=== PATIENT | female | born 1995 | race Caucasian/White ===

== ENCOUNTER 2023-08-16 16:59 | Inpatient (IN) | payer BC, SELFPAY ==
[2023-08-16] VITALS (71 sets, daily range): BP systolic 89–161; BP diastolic 42–72; PULSE 84–137; RESP 16–17; TEMP 36.8–37.6; O2SAT 81–100; BMI 26.6
[2023-08-16] MEDS: lactated ringers 1,000 ML 999 ML IV ×4 (16:20→19:32)
[2023-08-16] MEDS: ondansetron 2 mg/ML SDV 2 mL 4 MG IVP (16:30)
[2023-08-16 17:21] LABS: Basophils % 0.2 %; Eosinophils % 0.2 %; Lymphocytes # 1.2 10^3/uL (0.8-4.8); Lymphocytes % 8.9 %; Mean Corpuscular HGB Conc 32.1 g/dL (30-55); Mean Corpuscular Hemoglobin 25.8 pg (27-33); Mean Corpuscular Volume 80.6 fl (85-98); Mean Platelet Volume 12.6 fL (7.4-10.4); Monocytes # 0.6 10^3/uL (0.2-0.9); Monocytes % 4.6 %; Neutrophils # 11.34 10^3/uL (1.8-7.7); Neutrophils % 85.7 %; Nucleated Red Blood Cells % 0 %; Platelet Count 215 10^3/cmm (157-399); Red Blood Count 4.22 10^6/uL (3.85-5.65); Red Cell Distribution Width 14.3 % (12.1-15.1); White Blood Count 13.22 10^3/uL (3.29-11.43)
[2023-08-16] MEDS: ROPivacaine syringe 100 MG/50 ML SYRINGE 10 MG EPIDURAL (18:04)
--- NOTE | 2023-08-16 18:30 | ANES.PAUD2 ---
Pre-Anesthetic Update Pre-Anesthetic Assessment: Date of Surgery/Procedure: 08/16/23 Proposed Procedure: Labor Epidural Any changes to Pre-Anesthetic Assessment?: No Last Intake: clears- current meal- 1200 Labs Last 48hrs: Short CBC 08/16/23 Range/Units 16:12 WBC 13.22 H (3.29-11.43) 10^ 3/uL Hgb 10.90 L (11.27-16.99) g/ dL Hct 34.0 L (36-47) % MCV 80.6 L (85-98) fl Plt Count 215 (157-399) 10^3/c mm Neut % (Auto) 85.7 % Neut # (Auto) 11.34 H (1.8-7.7) 10^3/u L Blood Bank 08/16/23 16:12 Blood Type A Positive Rho(D) Type Rh positive Antibody Screen Negative Vitals: Temperature 99.7 F H 08/16/23 16:22 Pulse Rate 122 H 08/16/23 18:25 Pulse Rhythm Regular 08/16/23 15:37 Pulse Strength 3+ Normal 08/16/23 15:37 Respiratory Effort Spontaneous, Non- Labored 08/16/23 15:37 Respiratory Depth Normal 08/16/23 15:37 Respiratory Patter n Normal 08/16/23 15:37 Blood Pressure 107/51 08/16/23 18:25 Pulse Oximetry 100 08/16/23 18:24 Oxygen Delivery Me thod Room Air 08/16/23 15:37 Cardiac Studies: No Data to Display Anesthesia Procedures Epidural: Time Out Performed: Yes Consents Signed: Procedure Consent Consent: requested by attending/covering physician, from patient, risks and benefits reviewed and patient agrees to proceed Lumbar Level: L3-L4 Epidural position: sitting Epidural procedure: sterile prep of area, 1% lidocaine to numb the area, negative for paresthesia passed, test dose given, 1.5% xylocaine 1:200k epi (6ml), placed PCEA, no systemic response, sterile dressing applied, L.U.D. no apparent complications and 0.2% Ropiavacaine @ mls/hr (10ml/hr) Additional Comments: ERASMO at 5 cm on first attempt catheter threaded to 9cm, test dose given with no response, remaining lidocaine and saline given from kit.
--- NOTE | 2023-08-16 20:27 | P.HP_ITS ---
Providers/Chief Complaint 2 Admitting Physician: Berlin Jenkins MD Primary Care Provider: Berlin Jenkins MD Chief Complaint: Poss SROM HPI [employer] History of Present Illness Irma Moody is a 27 year old 1 female at 37 weeks and 6 days estimated gestational age who presented to the hospital with spontaneous rupture of membranes. She began having contractions spontaneously. Initially she did have a fever up to 102.7 but resolved spontaneously without intervention. An epidural was placed. heart tones demonstrated tachycardia but then resolved then to having late and variable decelerations including to deep decelerations that required multiple position changes for resolution of the decelerations. As result, pain decision to proceed with section since she is only 6 cm dilated at this time. Present Details : 1 Para: 0 Labs Rubella: Immune RPR: Negative GBS: Negative Medications/Allergies Home Medications Medication Instructions Recorded Confirmed Last Taken Type rbgoyurs-kjc-Md-FA 1 mg 1 tab PO DAILY 08/16/23 08/16/23 08/16/23 08:00 History tablet hydrocodone 5 mg-acetaminophen 325 1 tab PO Q6H PRN Moderate To 08/18/23 Unknown Rx mg tablet Severe Pain #28 tabs ibuprofen 800 mg tablet 800 mg PO TID #45 tabs 08/18/23 Unknown Rx Allergies Allergy/AdvReac Type Severity Reaction Status Date / Time No Known Allergies Allergy Verified 08/16/23 16:04 Vitals/I&O/Wt Last Vital Signs Temp 98.3 F 08/16/23 19:41 Pulse 126 H 08/16/23 20:24 BP 120/57 08/16/23 20:24 Pulse Ox 100 08/16/23 20:21 O2 Del Method Room Air 08/16/23 15:37 08/16/23 08/16/23 08/16/23 06:59 14:59 22:59 Intake Total 1998 Balance 1998 Weight last 48 hrs Weight 175 lb Physical Exam 2 Const: COMMON NORMALS: patient oriented x3 and alert HENMT: COMMON NORMALS: moist oral mucous membranes HEAD & SCALP: normal to inspection Chest: COMMONS NORMALS: normal inspection of the chest Resp: COMMON NORMALS: clear to auscultation bilaterally AUSCULTATION: clear to auscultation bilaterally Cardio: COMMON NORMALS: regular rate and regular rhythm RATE: regular rate RHYTHM: regular rhythm GI: INSPECTION: Yes normal to inspection and Yes other (Gravid) Extremity: COMMON NORMALS: normal to inspection GENERAL: Yes edema (Trace) Neuro: COMMON NORMALS: patient oriented x3, moves all extremities and no sensory deficits noted SENSORIUM/ORIENTATION: Yes alert Psych: COMMON NORMALS: mental status grossly normal Skin: COMMON NORMALS: no rashes or lesions noted GENERAL SKIN EXAM: no rashes or lesions noted Urinary Catheter Management: Cabezas: Cath Placed During This Visit: yes Reason for Continuing Indwelling Catheter: Accurate Measurement of Urinary Output in Critically Ill Patients Urinary Catheter Date of Insertion: 08/16/23 Urinary Catheter Time of Insertion: 18:57 Data 08/17/23 09:36 Results Labs OB ([facility]): 2 Blood Type A Positive 08/16/23 Antibody Screen Negative 08/16/23 Hct 27.3 % (36-47) L 08/17/23 Hgb 8.80 g/dL (11.27-16.99) L 08/17/23 Rho(D) Type Rh positive 08/16/23 Plt Count 178 10^3/cmm (157-399) 08/17/23 A&P Assessment and plan (1) 37 weeks gestation of : (2) heart deceleration: (3) Spontaneous rupture of membranes: Attestations 2 Medical Necessity Statement*: I anticipate routine and post care Coding Level of Care Code Acute Code for Chg Fwd Diagnoses 37 weeks gestation of Z3A.37 heart deceleration Spontaneous rupture of membranes
[2023-08-16] MEDS: BUPivacaine 0.5% INJ 30 mL INJECTION (20:50)
--- NOTE | 2023-08-16 21:35 | P.OP_ITS ---
Operative Report Date of procedure: August 16, 2023 Pre-op diagnosis: 1. 27-year-old 1 at 37 weeks and 6 days 2. heart tones demonstrating recurrent deep decelerations Post-op diagnosis: Status post low-transverse section Procedure done: Low-transverse section Specimens removed/disposition: 1. Female infant with a weight of 6 pounds 4 ounces and Apgars of 4 and 9 2. Placenta with a three-vessel cord delivered intact Surgeon: Berlin Jenkins MD Estimated blood loss (mL): 600 Procedure: The patient was brought back to the operating room where she was prepped and draped in usual sterile fashion. Anesthesia was found to be adequate. A lower transverse skin incision was then made with a #10 blade. I then dissected down to the underlying subcutaneous tissue until arriving at the prerectal fascia. The fascia was then nicked with the scalpel bilaterally. The fascial incisions were then carried laterally with Ansari scissors. Attention was then turned to the superior aspect of the incision which was grasped with kochers and tented up away from the underlying rectus abdominis muscles. The muscles were then dissected away from the fascia manually, and later with Ansari scissors. Attention was then turned to the inferior aspect of the incision, and the fascia was dissected away from the underlying muscle in similar fashion. The rectus abdominis muscles were then spread manually. The peritoneum was entered manually. Excellent visualization of the uterus was noted. A lower transverse uterine incision was then made with a #10 blade. Upon arriving at the int rauterine cavity, the uterine incision was then extended manually. The infant was noted to be in vertex position. The baby was delivered without difficulty. Thick meconium was noted. There was no nuchal cord. The cord was cut and clamped. The baby was then handed to the waiting nurse. The placenta was removed intact. The uterus was externalized. The intrauterine cavity was cleansed of any remaining debris. The uterine incision was reapproximated in 2 layers. The first layer was performed with 0 Vicryl in a running locked stitch. The second layer was an imbricating stitch also using 0 Vicryl. The uterus was replaced into the abdomen. The peritoneum was then irrigated with warm saline. I reexamined the uterine incision and found it to be hemostatic. The rectus abdominis muscles were then reapproximated using 0 Vicryl in a running stitch. The fascia was then reapproximated using 0 Vicryl in running stitch. The subcutaneous tissue was then reapproximated with 0 Vicryl in a running stitch. The skin was reapproximated using ulisses. A sterile dressing was placed. All counts were correct x2. Both the mother and baby were in stable condition.
[2023-08-16] MEDS: oxytocin 30 UNIT/500 ML BAG 600 UNIT IV (22:25)
[2023-08-16] MEDS: dextrose 5%-lactated ringers 1,000 ML 125 ML IV (22:25)
[2023-08-17] VITALS (24 sets, daily range): BP systolic 74–116; BP diastolic 40–65; PULSE 67–162; RESP 15; TEMP 36–36.6
[2023-08-17] MEDS: ketorolac 30 mg/mL INJ IVP ×4 (03:45→23:41)
[2023-08-17] MEDS: dextrose 5%-lactated ringers 1,000 ML 125 ML IV (05:34)
--- NOTE | 2023-08-17 06:20 | P.ANESPOST_ITS ---
Inpatient post-anesthesia follow up: Vital signs: Temperature 98.6 F Pulse Rate 69 Respiratory Rate 16 Blood Pressure 105/53 Pulse Oximetry 99 Oxygen Delivery Me thod Room Air Oxygen Flow Rate Fraction of Inspir ed Oxygen Hydration adequate: Yes Nausea and vomiting: No Pain level: con trolled Mental status: Baseline Additional Comments: no apparent anesthetic complcations noted.
--- NOTE | 2023-08-17 07:54 | P.PN_ITS ---
QUALITY INTERN Subjective 2 Subjective: Interval history: The patient is doing well. Her bleeding has been minimal. She is breast- feeding well. Her pain is been well-controlled. Labor: Station: 0 Amniotic Membrane Status: Ruptured Monitor Mode: External Contraction Pattern: Regular Vitals/I&O/Wt Last Vital Signs Temp 98.6 F 08/16/23 22:00 Pulse 83 08/17/23 07:34 Resp 16 08/16/23 22:00 BP 107/57 08/17/23 07:34 Pulse Ox 99 08/16/23 22:00 O2 Del Method Room Air 08/16/23 22:00 08/16/23 08/17/23 08/17/23 22:59 06:59 14:59 Intake Total 1998 Output Total 450 / 450 600 / 1050 Balance 1549 / 1549 -600 / 949 Weight last 48 hrs Weight 175 lb Physical Exam 2 Narrative: She is in no acute distress Lungs are clear auscultation bilaterally Her heart has a regular rate and rhythm Her fundus is below the umbilicus and firm Her dressing is clean, dry and intact Her extremities have trace edema Urinary Catheter Management: Cabezas: Cath Placed During This Visit: yes Reason for Continuing Indwelling Catheter: Accurate Measurement of Urinary Output in Critically Ill Patients Urinary Catheter Date of Insertion: 08/16/23 Urinary Catheter Time of Insertion: 18:57 Data 08/16/23 16:12 A&P Assessment and plan (1) Status post : I anticipate routine postoperative care. CBC will be done later this morning. (2) 37 weeks gestation of : Attestations 2 Medical Necessity Statement*: Routine post care. Coding Level of Care Code Acute Code for Chg Fwd Diagnoses Status post Z98.891 37 weeks gestation of Z3A.37
[2023-08-17 09:51] LABS: Hematocrit 27.3 % (36-47); Mean Corpuscular HGB Conc 32.2 g/dL (30-55); Mean Corpuscular Hemoglobin 25.9 pg (27-33); Mean Corpuscular Volume 80.3 fl (85-98); Mean Platelet Volume 12.1 fL (7.4-10.4); Platelet Count 178 10^3/cmm (157-399); Red Cell Distribution Width 14.6 % (12.1-15.1); White Blood Count 21.96 10^3/uL (3.29-11.43)
[2023-08-17] MEDS: ferrous sulfate EC 325 mg Tablet PO ×2 (10:19→17:43)
[2023-08-17] MEDS: docusate sodium 100 mg Capsule PO ×2 (10:19→17:43)
[2023-08-17] MEDS: PRENATAL VIT NO.130/IRON/FOLIC 1 EACH TABLET PO (10:19)
[2023-08-17] MEDS: HYDROcodone-acetaminophen 5-325 mg Tablet PO (18:45)
[2023-08-18] MEDS: HYDROcodone-acetaminophen 5-325 mg Tablet PO (05:14)
[2023-08-18 05:39] VITALS: BP 98/55; PULSE 60; RESP 15; TEMP 36.7
--- NOTE | 2023-08-18 06:56 | P.DS_ITS ---
Discharge Providers [employer] Date of Admission: 08/16/23 16:59 Date of Discharge: 08/18/23 Attending Provider at Admission: Berlin Jenkins MD Attending Provider at Discharge: Berlin Jenkins MD Primary Care Provider: Berlin Jenkins MD Diagnoses at Discharge Discharge Diagnosis (1) Status post : Status: Acute (2) 37 weeks gestation of : Status: Acute Reason for Visit Reason for Visit: Poss SROM Hospital Course Hospital Course The patient presented to the hospital with spontaneous rupture membranes. She began having contractions and going to labor spontaneously. She began having recurrent late decelerations. She was not making adequate cervical change and the decision was made to proceed with a section. Her was unremarkable. Her course was also unremarkable. She did have some initial nausea and sense of difficulty breathing but that resolved without difficulty. Her pain was well-controlled. Her bleeding was within normal limits. She passed gas within 24 hours of surgery. Her diet was advanced and she tolerated it well. She is breast-feeding well. Information Peripartum Data: Delivery Method: Physical Exam Narrative: She is in no acute distress Lungs are clear auscultation bilaterally Her heart has a regular rate and rhythm Her fundus is below the umbilicus and firm Her dressing is clean, dry and intact Her extremities have trace edema Urinary Catheter Management: Cabezas: Cath Placed During This Visit: yes, but has since been removed by the nurse Reason for Continuing Indwelling Catheter: Decision to DC Catheter Urinary Catheter Date of Insertion: 08/16/23 Urinary Catheter Time of Insertion: 18:57 Date Urinary Catheter Removed: 08/17/23 Time Urinary Catheter Discontinued: 10:37 Discharge Data Studies Completed and Pending Laboratory Results WBC 21.96 10^3/uL (3.29-11.43) H 08/17/23 09:36 RBC 3.40 10^6/uL (3.85-5.65) L 08/17/23 09:36 Hgb 8.80 g/dL (11.27-16.99) L 08/17/23 09:36 Hct 27.3 % (36-47) L 08/17/23 09:36 MCV 80.3 fl (85-98) L 08/17/23 09:36 MCH 25.9 pg (27-33) L 08/17/23 09:36 MCHC 32.2 g/dL (30-55) 08/17/23 09:36 RDW 14.6 % (12.1-15.1) 08/17/23 09:36 Plt Count 178 10^3/cmm (157-399) 08/17/23 09:36 MPV 12.1 fL (7.4-10.4) H 08/17/23 09:36 Neut % (Auto) 85.7 % 08/16/23 16:12 Lymph % (Auto) 8.9 % 08/16/23 16:12 Jerauld % (Auto) 4.6 % 08/16/23 16:12 Eos % (Auto) 0.2 % 08/16/23 16:12 Baso % (Auto) 0.2 % 08/16/23 16:12 Neut # (Auto) 11.34 10^3/uL (1.8-7.7) H 08/16/23 16:12 Lymph # (Auto) 1.2 10^3/uL (0.8-4.8) 08/16/23 16:12 Jerauld # (Auto) 0.6 10^3/uL (0.2-0.9) 08/16/23 16:12 Eos # (Auto) 0.0 10^3/uL (0.0-0.8) 08/16/23 16:12 Baso # (Auto) 0.0 10^3/uL (0.0-0.1) 08/16/23 16:12 Nucleated RBC % (auto) 0 % 08/16/23 16:12 Nucleated RBCs # 0.0 /100WBC 08/16/23 16:12 Blood Type A Positive 08/16/23 16:12 Rho(D) Type Rh positive 08/16/23 16:12 Antibody Screen Negative 08/16/23 16:12 Vitals Last Vital Signs Temp 98.0 F 08/18/23 05:39 Pulse 60 08/18/23 05:39 Resp 15 08/18/23 05:39 BP 98/55 08/18/23 05:39 Pulse Ox 99 08/16/23 22:00 O2 Del Method Room Air 08/16/23 22:00 Results Labs OB ([facility]): Blood Type A Positive 08/16/23 Antibody Screen Negative 08/16/23 Hct 27.3 % (36-47) L 08/17/23 Hgb 8.80 g/dL (11.27-16.99) L 08/17/23 Rho(D) Type Rh positive 08/16/23 Plt Count 178 10^3/cmm (157-399) 08/17/23 Discharge Plan Discharge Patient Disposition: Home Condition: Stable Prescriptions: New ibuprofen 800 mg Tablet 800 mg PO TID Qty: 45 0RF hydrocodone-acetaminophen 5-325 mg Tablet 1 tab PO Q6H PRN (Reason: Moderate To Severe Pain) Qty: 28 0RF Continued rogdbply-kmy-Zm-FA 1 mg Tablet 1 tab PO DAILY Discharge Orders: Discharge Order (Routine); Ordered 08/18/23 Ordered By: Berlin Jenkins Referrals: Berlin Jenkins MD [Primary Care Provider] - Discharge Diet: Usual diet Discharge Activity: Limit activity as instructed Patient Instructions: Depression (DC), Opioid Safety (DC), Preeclampsia and Eclampsia After Delivery (GEN), Hemorrhage (DC), OB - Nayeli, OB Discharge Report, OB Food/Drug Interaction Guide, OB Care at Home, Opioid Safety, Abnormal Bleeding Discharge Attestations [employer] Time Spent in Discharge Care*: less than 30 min Coding Level of Care Code Acute Code for Chg Fwd Diagnoses Status post Z98.891 37 weeks gestation of Z3A.37
[2023-08-18] MEDS: ibuprofen 800 mg tablet PO (08:58)
[2023-08-18] MEDS: docusate sodium 100 mg Capsule PO (08:58)
[2023-08-18] MEDS: PRENATAL VIT NO.130/IRON/FOLIC 1 EACH TABLET PO (08:58)
[2023-08-18] MEDS: ferrous sulfate EC 325 mg Tablet PO (08:58)
[2023-08-18 09:30] VITALS: BP 113/73; PULSE 104; RESP 17; TEMP 36.8
[2023-08-18 09:35] VITALS: BP 113/73; PULSE 104; RESP 17; TEMP 36.8
== END 2023-08-18 09:39 | disposition home or self-care (01) | DRG 787 ==
LOC: OPOB 17:00 → OBGYN 17:00
PROVIDERS: Admitting Provider Family Medicine; Family Provider Family Medicine; PCP Family Medicine; Visit Provider Family Medicine
PROC: 10D00Z1 Extraction of Products of Conception, Low, Open Approach (ICD-10-PCS; CPT 59514; principal; 2023-08-16 20:40)
DX: O76 Abnormality in fetal heart rate and rhythm complicating labor and delivery (principal); O75.2 Pyrexia during labor, not elsewhere classified; Z3A.37 37 weeks gestation of pregnancy; Z37.0 Single live birth
CPT/HCPCS: 36415; 51702; 59025; 59409; 83986; 85025; 85027; 86850; 86900; 96374; 96376; 98960; 99211; J1885; J2274; J2371; J2405; J2590; J2795; J3490; J7120; J7121